=== PATIENT | female | born 2000 | race Two or more races ===

== ENCOUNTER 2024-10-04 00:31 | Emergency (ER) | payer MEDICAID, SELFPAY ==
[2024-10-04 00:32] VITALS: BMI 22.3
[2024-10-04 00:41] VITALS: BP 117/76; PULSE 108; RESP 19; TEMP 37.5; O2SAT 98
--- NOTE | 2024-10-04 00:50 | XR_ITS ---
Examination: Complete OB ultrasound, less than 14 weeks, transabdominal Date and time of exam: October 04, 2024 0101 hrs. Indications: Pelvic cramping and vaginal bleeding beginning 3 days ago Technique: Obstetrical ultrasound images less than 14 weeks performed via transabdominal imaging Findings: Uterus 7.8 cm, intrauterine gestational sac 1.1 corresponds to 5 week 6 day gestational age No pole, no cardiac activity Right ovary obscured by bowel gas Left ovary 3.4 cm arterial flow Impression: Empty intrauterine gestational sac corresponding to 5 week 6 day gestational age, no pole, no cardiac activity Recommend short-term follow-up pelvic sonography to confirm viability
--- NOTE | 2024-10-04 00:51 | PD.EDRME ---
Rapid Medical Screening Exam RME Arrival date/time: 10/04/24 00:31 23 yo f present to ED for c/o of vag bleeding, currently 4 week I have greeted and performed a focused initial assessment of this patient. A comprehensive ED assessment and evaluation of the patient, analysis of all test results, and completion of the medical decision making process will be conducted by additional ED providers. Chief Complaint: Vaginal Bleeding Time Seen by Provider: 10/04/24 00:36 Vital signs: Vital Signs Temperature 99.5 F 10/04/24 00:41 Pulse Rate 108 H 10/04/24 00:41 Respiratory Rate 19 10/04/24 00:41 Blood Pressure 117/76 10/04/24 00:41 Pulse Oximetry (%) 98 10/04/24 00:41 Oxygen Delivery Method Room Air 10/04/24 00:41
[2024-10-04 01:11] LABS: Collection Type, Urine Voided
[2024-10-04 01:22] LABS: Basophils # (Auto) 0.1 Thou/mm3 (0.0-0.2); Basophils % (Auto) 1 % (0-2.5); Eosinophils # (Auto) 0.1 Thou/mm3 (0.0-0.5); Eosinophils % (Auto) 1 % (0-10); Hematocrit 38.1 % (36.0-46.0); Hemoglobin 12.6 g/dL (12.0-16.0); Immature Granulocytes % (Auto) 0 % (0-0); Immature Granulocytes Auto 0.03 Thou/mm3 (0.00-0.00); Lymphocytes # (Auto) 2.6 Thou/mm3 (1.0-4.8); Lymphocytes % (Auto) 30 % (10-50); Mean Corpuscular HGB Conc 33.1 g/dl (31.0-37.0); Mean Corpuscular Volume 82 fL (80-100); Monocytes # (Auto) 0.7 Thou/mm3 (0.0-0.8); Monocytes % (Auto) 9 % (0-12); Neutrophils # (Auto) 5.2 Thou/mm3 (1.8-7.7); Neutrophils % (Auto) 60 % (37-80); Nucleated Red Blood Cell % 0 /100 WBC (0); Platelet Count 246 Thou/mm3 (140-440); RDW Standard Deviation 40.6 fL (36.4-46.3); Red Blood Count 4.67 Miln/mm3 (4.00-5.20); White Blood Count 8.7 Thou/mm3 (3.6-11.0)
[2024-10-04 01:42] LABS: Bilirubin,Urine Negative (Negative); Blood,Urine 1+ (Negative); Clarity,Urine Clear (Clear/Hazy); Color,Urine Colorless (Lt Yel-Yel); Glucose, Urine Negative (Negative); Ketones,Urine Negative (Negative); Leukocyte Esterase,Urine Negative (Negative); Nitrite,Urine Negative (Negative); PH,Urine 6.5 (5.0-7.0); Protein,Urine Negative (Neg - Trace); RBC,Urine 1 /hpf (0-3); Specific Gravity,Urine 1.004 (1.001-1.035); Squamous Epithelial Cell,Urine 1 /hpf (0-5); Urobilinogen,Urine Negative mg/dL (0.0-1.0); WBC,Urine 1 /hpf (0-5)
[2024-10-04 01:59] LABS: Alanine Aminotransferase 14 U/L (10-49); Albumin, Serum 4.5 gm/dL (3.5-5.0); Albumin/Globulin Ratio 1.6 (1.2-2.2); Alkaline Phosphatase 53 U/L (46-116); Anion Gap 9 (7-16); Aspartate Amino Transferase 19 U/L (0-34); BUN/Creatinine Ratio 11 Ratio (12-20); Bilirubin,Total 0.4 mg/dL (0.3-1.2); Blood Urea Nitrogen 8 mg/dL (9-23); Calcium 9.6 mg/dL (8.3-10.6); Calcium (Corrected) 9.6 mg/dL (8.5-10.1); Carbon Dioxide 24.5 mMol/L (20.0-31.0); Chloride 103 mMol/L (98-107); Creatinine (Component) 0.7 mg/dL (0.6-1.3); Estimated Creatinine Clearance 126.1 mL/min (>60); Globulin 2.8 gm/dL (2.3-3.5); Glucose 92 mg/dL (74-106); Osmolality,Calculated 270 (275-295); Potassium 3.8 mMol/L (3.4-5.1); Sodium 136 mMol/L (136-145); Total Protein 7.3 gm/dL (5.7-8.2); eGFR > 60 See Note
[2024-10-04 02:17] LABS: Beta HCG,Quantitative 13872 mIU/mL (<5.0)
--- NOTE | 2024-10-04 02:30 | PRELIM_ITS ---
Obstetric ultrasound (transabdominal) with Doppler and wave Doppler spectral analysis. October 04, 2024 0103 hours. Clinical history: Vaginal bleeding Technique: Real-time ultrasound was performed using Duplex scanning including arterial inflow, venous outflow, color and spectral Doppler analysis of both ovaries. Comparison: None Findings: There is an intrauterine gestational sac of mean gestational age 5 weeks and 6 days (MSD = 1.1 cm). The pole and yolk sac are not visualized. The uterus measures 7.6 x 6.0 x 6.3 cm. The endometrium measures 2.2 cm. The right ovary was not visualized. The left ovary measures 3.4 x 1.9 x 2.9 cm and is unremarkable. Normal blood flow in the left ovary with normal wave Doppler spectral analysis. There is no free fluid in the pelvis. Impression: Intrauterine gestational sac of mean gestational age 5 weeks and 6 days. The pole and yolk sac are not visualized, please correlate clinically. Consider short-term follow-up to assess for viability. Report Electronically Signed By: Jose Antonio Thomas 10/04/2024 2:30:02 AM [EST]
--- NOTE | 2024-10-04 02:55 | PD.EDVAGBL ---
ED OB Contraction Preg RMI/HPI General Chief complaint: Vaginal Bleeding Stated complaint: preg vag bleeding Time Seen by Provider: 10/04/24 00:36 Arrival date/time: 10/04/24 00:31 23 year old female present to emergency room with c/o of intermittent vaginal spotting today. pt is currently 4-5 weeks . LOCATION: suprapubic SEVERITY: Symptoms are described as being severe with limitations on activities of daily living QUALITY: Symptoms are described as being cramping CONTEXT: The patient is unable to identify any inciting events. DURATION/TIMING: The symptoms started approximately one day ago and have been waxing/waning but always present without ever completely resolving. ASSOCIATED SYMPTOMS: The patient is unable to identify any other associated symptoms. MODIFYING FACTORS: The patient is unable to identify any alleviating or aggravating symptoms. PERTINENT ROS: denies trauma, denies domestic violence, no dysuria or hematuria, no orthostatic symptoms, no nausea or vomiting, no fevers, no anorexia, no diarrhea or constipation REVIEW OF SYSTEMS: See History of Present Illness - with the exception of those mentioned in the history of present illness, all other systems reviewed and reported as negative GENERAL: In general the patient is awake, interactive, in an emergency department gurney. HEAD/EYES/EARS/NOSE/THROAT: normo-cephalic, atraumatic, mucus membranes are moist, anicteric, palpebral conjunctiva is pink, trachea is midline. CARDIOVASCULAR: regular rate and regular rhythm, no murmurs, heart sounds are not distant, strong pulses in all four extremities that are equal and symmetric bilateral upper and lower extremities, normal capillary refill. CHEST/PULMONARY: normal chest rise and fall, good air movement, clear to auscultation bilaterally, normal inspiratory to expiratory ratios without evidence of respiratory distress. NECK: No midline/Paraspinal tenderness, no step off ROM/Strenght intact No Kernig and bruzinski sign. No trauma ABDOMEN: soft, not tender, no masses appreciated BACK: normal range of motion without pain. NEUROLOGICAL: cranio-facial features are symmetric, moves all four extremities equally without obvious limitations or weakness. EXTREMITY: no tenderness to palpation over the long bones or large joints of the bilateral upper and lower extremities, no joint swelling, no joint erythema, no signs of trauma, no unilateral leg swelling and no peripheral edema. SKIN: warm, dry, well-perfused, no jaundice, no rash, no telangiectasias or petechia. PSYCH: calm, cooperative, no evidence of psychosis or agitation RME / HPI RME / HPI Narrative: 10/04/24 00:31 23 yo f present to ED for c/o of vag bleeding, currently 4 week I have greeted and performed a focused initial assessment of this patient. A comprehensive ED assessment and evaluation of the patient, analysis of all test results, and completion of the medical decision making process will be conducted by additional ED providers. Related Data Allergies Allergy/AdvReac Type Severity Reaction Status Date / Time NKA* Allergy Uncoded 10/04/24 00:38 Course Course Course Narrative: This patient presents with vaginal bleeding in the first trimester. DDX includes ectopic, IUP, threatened/inevitable , along with completed . Patient is HDS and without a history of coagulopathy or infectious symptoms. Doubt alternate acute emergent pathology. Plan: bHCG, +/- basic labs, type and screen, TVUS, reassess Quality Measures none Orders Category Date Time Status US OB <= 14 weeks fetus Stat Exams 10/04/24 00:50 Taken Beta HCG,Quantitative Stat Lab 10/04/24 01:16 Completed CBC Stat Lab 10/04/24 01:16 Completed CMP [Comprehensive Metabolic Panel] Stat Lab 10/04/24 01:16 Completed UA [Urinalysis] Stat Lab 10/04/24 00:58 Completed Urine Culture Stat Lab 10/04/24 00:58 Received Vital Signs Vital signs: Vital Signs Temperature 99.5 F 10/04/24 00:41 Pulse Rate 108 H 10/04/24 00:41 Respiratory Rate 19 10/04/24 00:41 Blood Pressure 117/76 10/04/24 00:41 Pulse Oximetry (%) 98 10/04/24 00:41 Oxygen Delivery Method Room Air 10/04/24 00:41 Vaginal Bleeding Patient data External records reviewed:: [facility] previous records Clinical information provided by:: patient and family Social determinants that could affect healthcare access:: none Patient has the following chronic illnesses:: n/a How is presenting disease/condition affected by chronic disease/condition?: no chronic disease Evaluation data The following diagnostics were reviewed and interpreted by me:: lab results and radiology exam(s) Lab and/or radiology exams considered but not ordered:: n/a Interpretation Summary: hc cbc/cmp no acute findings urine no infection US: 5 weeks, no Heart beat/early Medications / Prescriptions Medications or Prescriptions considered but not ordered:: n/a Medication administrations:: n/a Consultations Consultation(s) initiated? (list below): No Diagnosis Vaginal Bleeding Differential Diagnosis: missed , threatened , ectopic without intrauterine , vaginal bleeding and other (, uti ) Most likely diagnosis given after review of the tests above:: Admission Indicated Admission indicated?: not indicated Admission Request Was there a request for admission?: No Disposition Plan Disposition Plan: Discharge Discharge Attestation Discharge Attestation: The patient and all family members were given an opportunity to ask questions and understood the discharge instructions. Discharge instructions specifically effects, indications for sooner follow up or return to the emergency department, and the expected course of current diagnosis. Patient condition: Stable Discharge Plan Plan Patient Disposition: HOME (Self Care) Health Concerns: Follow up ER or PCP in 2-3 days for repeat HCG levels Return to ED if symptoms worsen Prescriptions/Referrals Referrals: No Primary/Family,Physician [Primary Care Provider] - In 1 week Problem List Clinical Impression: Patient/Caregiver Discharge Instructions Education Materials: First Trimester Print Language: Polish Stand Alone Forms: Janine Award Info., Patient Portal Info Letter
== END 2024-10-04 03:02 | disposition home or self-care (01) ==
PROVIDERS: Physician Assistant; Emergency Provider Emergency Medicine
DX: O20.9 Hemorrhage in early pregnancy, unspecified (principal); Z3A.01 Less than 8 weeks gestation of pregnancy
CPT/HCPCS: 36415; 76801; 80053; 81001; 84702; 85025; 87086; 99284

== ENCOUNTER → 2024-10-12 | Outpatient (CLI) | payer MEDICAID, SELFPAY ==
--- NOTE | 2024-10-12 16:26 | XR_ITS ---
Examination: OB Transvaginal ultrasound of the pelvis, complete Technique: Transvaginal sonographic images pelvis performed using walker scale imaging Exam date and time: October 12, 2024 1642 hrs. Indications: Vaginal bleeding beginning one week ago Findings: Uterus 9.9 cm aorta 4.9 cm corresponds to 6 week 6 day gestational age Cardiac motion 133 BPM Adjacent subchorionic hemorrhage 11 x 5 x 9 mm Free fluid in the cervix Gestational sac is irregular Right ovary obscured by bowel gas Left ovary 3.3 cm arterial flow Impression: Viable intrauterine gestation 6 weeks 6 days Adjacent subchorionic hemorrhage 11 x 5 x 9 mm The gestational sac is irregular in contour, clinical correlation advised, recommend short-term follow-up to confirm viability.
== END | disposition home or self-care (01) ==
PROVIDERS: Referring Provider Obstetrics & Gynecology; Visit Provider Obstetrics & Gynecology
DX: O20.0 Threatened abortion (principal); Z3A.01 Less than 8 weeks gestation of pregnancy; N93.8 Other specified abnormal uterine and vaginal bleeding
CPT/HCPCS: 76817